=== PATIENT | female | born 1985 | race Caucasian/White ===

== ENCOUNTER 2017-08-29 10:18 | Day surgery (SDC) | payer OTHER ==
[~2017-08-29] VITALS: Ht 160 cm; Wt 99.0 kg
[2017-08-29 11:03] LABS: HEMATOCRIT 44.2 % (36.0-46.0); HEMOGLOBIN 14.8 G/DL (11.9-15.5); MCH 29.6 PG (29.0-34.0); MCHC 33.5 G/DL (30.0-36.0); MCV 88.4 FL (83-99); PLATELET COUNT 304 K/uL (156-360); RBC DIS.WIDTH-CV 12.3 % (11.8-14.6); RBC DIS.WIDTH-SD 39.5 % (39-53); WHITE BLOOD COUNT 12.5 K/uL (4.1-10.2)
[2017-08-29 11:13] LABS: CHLORIDE 105 mEq/L (99-109); POTASSIUM 3.9 mEq/L (3.7-5.4); SODIUM 139 mEq/L (136-147)
[2017-08-29 11:15] LABS: GLUCOSE 96 mg/dL (70-99)
[2017-08-29 11:18] LABS: CREATININE 0.7 mg/dL (0.6-1.3); GFR ESTIMATE (CALCULATED) > 59 mL/min/
[2017-08-29 11:19] LABS: UREA NITROGEN (BUN) 8 mg/dL (9-23)
[2017-08-29 11:27] LABS: QUANTITATIVE HCG < 4.0 MIU/ML
[2017-08-29] MEDS ORDERED: FLEXERIL10 MG PO (12:41)
[2017-08-29] MEDS ORDERED: WELLBUTRIN XL300 MG PO (12:42)
[2017-08-29] MEDS ORDERED: LUBRICANT EYE D15 M2 BOTH EYES (12:43)
[2017-08-29] MEDS ORDERED: ZYRTEC10 M3 PO (12:43)
[2017-08-29] MEDS ORDERED: FLUVOXAMINE MA100 M1 PO (12:43)
[2017-08-29] MEDS ORDERED: BUSPIRONE HCL5 MG PO (12:43)
[2017-08-29] MEDS ORDERED: FLONASE16 G1 BOTH NARES (12:44)
[2017-08-30] VITALS: BP 125/85
[2017-08-30 00:03] VITALS: BP 132/83
[2017-08-30 04:43] VITALS: BP 140/77
[2017-08-30 07:33] VITALS: BP 137/86
[2017-08-30] MEDS ORDERED: ENDOCET 5-3251 EACH PO (08:09)
[2017-08-30 11:09] VITALS: BP 136/85
[2017-08-30] MEDS ORDERED: OXYCODONE-APAP1 EACH PO (12:03)
[2017-08-30 12:04] VITALS: BP 130/80
== END 2017-08-30 16:34 | disposition home or self-care (01) ==
LOC: EME 10:18 → SDC 18:02 → ENRESERV 22:01 → 2SOUTH 22:02 → 3EAST 22:02 → ENRESERV 22:11 → 3EAST 23:55
PROVIDERS: Nurse Practitioner Family
DX: M50.021 Cervical disc disorder at C4-C5 level with myelopathy (principal); M47.12 Other spondylosis with myelopathy, cervical region; F41.8 Other specified anxiety disorders; R00.0 Tachycardia, unspecified; Z88.2 Allergy status to sulfonamides
CPT/HCPCS: 72020; 76000; 80048; 84702; 85027; 86850; 86900; 86901; 99281; 99285; C1713; C1821; G0378; G8978 GP CI; G8979 GP CH; G8980 GP CI; G8987 GO CI; G8988 GO CH; G8989 GO CI; J0131; J0690; J1100; J1170; J1885; J2250; J2270; J2405; J3010; J3480; J7030